=== PATIENT | male | born 1950 | race Caucasian/White ===

== ENCOUNTER → 2017-12-21 | Outpatient (CLI) | payer MEDICARE ==
[2017-12-21 18:58] LABS: Basophils % (A) 1 %; Eosinophils # (A) 0.3 k/uL (0-0.7); Eosinophils % (A) 7 %; HCT 43.6 % (39.0-53.0); HGB 14.6 gm/dL (13.0-17.5); Lymphocytes # (A) 1.3 k/uL (1.0-4.8); Lymphocytes % (A) 33 %; MCH 31.7 pg (25.0-35.0); MCHC 33.4 g/dL (31.0-37.0); Mean Platelet Volume 7.5; Monocytes # (A) 0.2 k/uL (0-1.0); Monocytes % (A) 6 %; Neutrophils % (A) 51 %; Platelet Count 174 k/uL (150-450); RDW 12.6 % (11.5-15.5)
[2017-12-21 19:12] LABS: Albumin 3.8 g/dL (3.5-5.0); Calcium 8.8 mg/dL (8.4-10.2); Potassium 4.6 mmol/L (3.5-5.1); Total Bilirubin 0.6 mg/dL (0.2-1.3); Total Protein 6.5 g/dL (6.3-8.2)
[2017-12-21 19:40] LABS: PSA Annual Screen 1.43 ng/mL (0.00-4.00)
== END | disposition home or self-care (01) ==
LOC: MMGSC 09:52
PROVIDERS: ATTEND Family Medicine
DX: Z00.00 Encounter for general adult medical examination without abnormal findings (principal); Z12.5 Encounter for screening for malignant neoplasm of prostate
CPT/HCPCS: 80061; 80053; 84443; 85025; 36415; G0103